=== PATIENT | female | born 1975 | race Caucasian/White ===

== ENCOUNTER → 2018-01-25 | Outpatient (CLI) | payer BC, OTHER ==
[~2018-01-25] MED LIST: ACET-1966 PO; ALBU8.5H12 IH; ALBUDR INH; AMOX250S73 PO; DOC100 PO; FLUT16SP19 NS; HYDR-3083 PO; HYDR473S49 PO; IBUP200C71 PO; IBUP600T22 PO; IBUP800T37 PO; LEVO-85 PO; LEVO112T44 PO; LIO5 PO; LOR5/325 PO; LOR75 PO; LORA-802 PO; LORA10CA3 PO; MULT-1372 PO; PRO25 PO; RIZA10 PO; SUMA6PEN SQ; SUMA6VIA16 SQ; TRA50 PO; TRAM-420 PO; TUM500 PO
--- NOTE | 2018-01-26 11:44 | RADIOLOGY IMAGING REPORT ---
FACILITY: [facility] [place] PATIENT NAME: BRAYAN CHOWDHURY : [id number] MR: [id number] V: [id number] EXAM DATE: ORDERING PHYSICIAN: LUPE RODRIGES TECHNOLOGIST: Viki Durham PROCEDURE:BILATERAL DIGITAL SCREENING MAMMOGRAM WITH CAD ASSISTED INTERPRETATION & 3D TOMOSYNTHESIS COMPARISON:None. This is the patient's baseline mammogram. INDICATIONS:SCREENING FINDINGS: A small amount of mildly heterogeneous fibroglandular tissue is seen throughout the breasts. There is a small grouping of round calcifications in the medial inferior portion of the Left breast for which Spot magnification view is recommended. DIAGNOSTIC CATEGORY 0--INCOMPLETE: NEED ADDITIONAL IMAGING EVALUATION. RECOMMENDATIONS: ADDITIONAL MAMMOGRAPHIC VIEWS REQUIRED: LEFT BREAST. IMPRESSION: BIRADS 0: Incomplete Additional view of the Left breast recommended as described above. Dictated by: Yesenia Johnson M.D. on 01/25/2018 at 10:43 Transcribed by: [email or web address] on 01/25/2018 at 11:17 Approved by: Yesenia Johnson M.D. on 01/26/2018 at 11:44 [facility]
== END ==
LOC: MAMO 00:45
PROVIDERS: ATTEND Family Medicine
DX: Z12.31 Encounter for screening mammogram for malignant neoplasm of breast (principal); R92.1 Mammographic calcification found on diagnostic imaging of breast
CPT/HCPCS: 77063; 77067

== ENCOUNTER → 2018-01-31 | Outpatient (CLI) | payer BC ==
--- NOTE | 2018-02-01 10:29 | RADIOLOGY IMAGING REPORT ---
FACILITY: [facility] [place] PATIENT NAME: BRAYAN CHOWDHURY : [id number] MR: [id number] V: [id number] EXAM DATE: ORDERING PHYSICIAN: LUPE RODRIGES TECHNOLOGIST: Viki Durham PROCEDURE:LEFT DIGITAL DIAGNOSTIC MAMMOGRAM COMPARISON:Prior mammograms 01/25/18 INDICATIONS:FURTHER EVAL FINDINGS: The patient returns for mediolateral view of the Left breast and Spot magnification views in Left CC and MLO projections. The small grouping of round calcifications in the medial inferior portion Left breast are again seen. There is no branching or pleomorphism. A 6 month follow-up Left mammogram is recommended unless clinical findings warrant more immediate attention. DIAGNOSTIC CATEGORY 3--PROBABLY BENIGN FINDING. RECOMMENDATIONS: SIX MONTH FOLLOW-UP DIAGNOSTIC MAMMOGRAM: LEFT BREAST. IMPRESSION: BIRADS 3: Probably benign finding 6-Month follow-up Left mammogram recommended unless clinical findings warrant more immediate attention. Dictated by: Yesenia Johnson M.D. on 01/31/2018 at 17:01 Transcribed by: [email or web address] on 02/01/2018 at 8:23 Approved by: Yesenia Johnson M.D. on 02/01/2018 at 10:28 [facility]
== END ==
LOC: MAMO 03:26
PROVIDERS: ATTEND Family Medicine
DX: R92.1 Mammographic calcification found on diagnostic imaging of breast (principal)
CPT/HCPCS: 77061; 77065